=== PATIENT | male | born 2000 | race Caucasian/White ===

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

== ENCOUNTER 2022-01-29 19:27 | Emergency (ER) | payer BC, OTHER ==
[~2022-01-29] VITALS: Ht 193 cm; Wt 99.1 kg
[2022-01-29 19:28] VITALS: BP 138/78
[2022-01-29] MEDS ORDERED: ONDA4TAB6 PO (22:12)
[2022-01-29] MEDS ORDERED: ONDANSETRON 4MG ORAL DISINTEGRATING TAB PO ONE (22:15)
== END 2022-01-29 22:39 | disposition home or self-care (01) ==
LOC: M ED 19:27
DX: J06.9 Acute upper respiratory infection, unspecified (principal); B34.8 Other viral infections of unspecified site; F17.200 Nicotine dependence, unspecified, uncomplicated